=== PATIENT | male | born 1950 | race Asian ===

== ENCOUNTER 2017-10-30 01:59 | Outpatient (CLI) | payer MEDICARE, OTHER | END 2017-10-30 02:00 | disposition critical access hospital (66) | LOC: EMS 01:59 | PROVIDERS: ATTEND Surgery | DX: R10.10 Upper abdominal pain, unspecified (principal); R61 Generalized hyperhidrosis; R11.0 Nausea | CPT/HCPCS: A0425; A0429 ==

== ENCOUNTER 2017-10-30 02:51 | Emergency (ER) | payer MEDICARE, OTHER ==
--- NOTE | 2017-10-30 03:10 | ED Physician Documentation ---
PD HPI CHEST PAIN - Stated complaint Stated Complaint: CHEST PAIN - Chief complaint Chief Complaint: Cardiac - History obtained from History obtained from: Patient, EMS - History of Present Illness Timing - onset: Enter time (01:00), Today Timing - onset during: Sleep Timing - details: Abrupt onset Pain level max: 10 Pain level now: 5 Quality: Pain Location: Epigastric Radiation: Other (no radiation) Improved by: Nothing Worsened by: Other (no apparent inciting or exacerbating factors) Associated symptoms: No: Shortness of air, Diaphoresis, Nausea, Vomiting, General Weakness, Palpitations, Cough Similar symptoms before: Other (has had similar but milder episodes in the past that were self-limited and thus he did not seek medical attention until tonight' s severe episode) Recently seen: Not recently seen - Additional information Additional information: awoken from sleep 1 AM due to severe epigastric pain which has subsequently improved significantly en route to ED. Review of Systems Constitutional: denies: Fever, Chills, Sweats Cardiac: reports: Reviewed and negative Respiratory: reports: Reviewed and negative GI: reports: Abdominal Pain. denies: Nausea, Vomiting : denies: Dysuria, Frequency Musculoskeletal: denies: Neck pain, Back pain PD PAST MEDICAL HISTORY - Past Medical History Past Medical History: No - Past Surgical History Past Surgical History: Yes - Present Medications Home Medications: Ambulatory Orders Medication Instructions Recorded Confirmed Ondansetron Odt [Zofran] 4 mg TL Q6H PRN #14 tablet 10/30/17 oxyCODONE [Roxicodone] 5 - 10 mg PO Q6H PRN #20 tablet 10/30/17 - Allergies Allergies/Adverse Reactions: Allergies Allergy/AdvReac Type Severity Reaction Status Date / Time acetaminophen [From Percocet] Allergy Unknown Verified 10/30/17 02:59 oxycodone [From Percocet] Allergy Unknown Verified 10/30/17 02:59 Penicillins Allergy Unknown Verified 10/30/17 02:59 - Social History Does the pt smoke?: No Smoking Status: Never smoker Does the pt drink ETOH?: No Does the pt have substance abuse?: Yes Substance Use and Type: Marijuana - POLST Patient has POLST: No PD ED PE NORMAL - Vitals Vital signs reviewed: Yes - General General: Alert and oriented X 3, No acute distress, Well developed/nourished - HEENT HEENT: Moist mucous membranes - Cardiac Cardiac: RRR, No murmur, No gallop, No rub - Respiratory Respiratory: No respiratory distress, Clear bilaterally - Abdomen Abdomen: Normal bowel sounds, Soft, Non tender, Non distended, No organomegaly - Back Back: No CVA TTP - Derm Derm: Normal color, Warm and dry - Extremities Extremities: No edema Results - Vitals Vitals: Vital Signs - 24 hr 10/30/17 10/30/17 10/30/17 02:51 03:04 05:23 Temperature 36.5 C 36.3 C L Heart Rate 58 L 56 L 80 Respiratory 18 16 16 Rate Blood Pressure 143/96 H 148/83 H 137/82 H O2 Saturation 100 100 99 10/30/17 06:19 Temperature 36.8 C Heart Rate 61 Respiratory 18 Rate Blood Pressure 132/74 H O2 Saturation 97 Oxygen O2 Source Room air - EKG (time done) No standard instances Rate: Rate (enter#) (58) Rhythm: NSR [place]: Normal Intervals: Normal VT QRS: LVH Ischemia: Normal ST segments, Non specific changes (biphasic T waves V2-V6) Other comments: Other comments (PAC) - Labs Labs: Laboratory Tests 10/30/17 10/30/17 10/30/17 03:48 03:48 03:48 WBC 7.4 RBC 4.58 L Hgb 14.1 Hct 42.6 MCV 92.9 MCH 30.8 MCHC 33.2 RDW 13.4 Plt Count 271 MPV 7.1 L Neut # 6.0 Lymph # 0.8 L [place] # 0.4 Eos # 0.1 Baso # 0.0 Absolute Nucleated RBC 0.00 Nucleated RBC % 0.0 Sodium 138 Potassium 3.8 Chloride 101 Carbon Dioxide 23 Anion Gap 14.0 H BUN 15 Creatinine 0.7 Estimated GFR (MDRD) 113 Glucose 118 H Calcium 8.8 Total Bilirubin 1.0 AST 97 H ALT 57 Alkaline Phosphatase 65 Troponin I < 0.04 Total Protein 6.4 L Albumin 3.5 Globulin 2.9 Albumin/Globulin Ratio 1.2 Lipase 34 - Rads (name of study) chest xray Radiology: Prelim report reviewed, See rad report RUQ US Radiology: Prelim report reviewed, See rad report PD MEDICAL DECISION MAKING - ED course Complexity details: reviewed results, re-evaluated patient, considered differential, d/w patient, d/w family ED course: given 0.5mg IV dilaudid and zofran IV with good relief of symptoms, reported 1 ( of 10) pain on reevaluation after tests resulted. Suspect biliary colic, can be discharged home with outpatient f/u, encouraged to return if worse in any way Departure - Departure Disposition: 01 Home, Self Care Clinical Impression: Biliary colic Condition: Good Instructions: ED Gallstone W Biliary Colic Follow-Up: Mehran Coates MD [Provider Admit Priv/Credential] - Prescriptions: Ondansetron Odt [Zofran] 4 mg TL Q6H PRN #14 tablet PRN Reason: Nausea / Vomiting oxyCODONE [Roxicodone] 5 - 10 mg PO Q6H PRN #20 tablet PRN Reason: Pain Discharge Date/Time: 10/30/17 06:20
[2017-10-30] MEDS ORDERED: ONDANSETRON 4 MG/2 ML VIAL IVP STA (03:42)
[2017-10-30] MEDS ORDERED: HYDROmorphone 1 MG/ML SYRINGE IVP STA (03:42)
[2017-10-30 04:00] LABS: BASOPHILS % (AUTO) 0.5 %; EOSINOPHILS # (AUTO) 0.1 10^3/uL (0.0-0.7); EOSINOPHILS % (AUTO) 1.4 %; HGB - HEMOGLOBIN 14.1 g/dL (14.0-18.0); LYMPHOCYTES # (AUTO) 0.8 10^3/uL (1.5-3.5); LYMPHOCYTES % (AUTO) 11.2 %; MEAN CORPUSCULAR HEMOGLOBIN 30.8 pg (27.0-31.0); MEAN CORPUSCULAR HGB CONC 33.2 g/dL (32.0-36.0); MEAN CORPUSCULAR VOLUME 92.9 fL (80.0-94.0); MEAN PLATELET VOLUME 7.1 fL (7.4-11.4); MONOCYTES # (AUTO) 0.4 10^3/uL (0.0-1.0); NEUTROPHILS % (AUTO) 80.9 %; PLT - PLATELET COUNT 271 10^3/uL (130-450); RED BLOOD COUNT 4.58 10^6/uL (4.70-6.10); RED CELL DISTRIBUTION WIDTH 13.4 % (12.0-15.0); WHITE BLOOD COUNT 7.4 x10^3/uL (4.8-10.8)
[2017-10-30 04:10] LABS: ALBUMIN 3.5 g/dL (3.2-5.5); ALBUMIN/GLOBULIN RATIO 1.2 (1.0-2.2); CALCIUM 8.8 mg/dL (8.5-10.3); CREATININE 0.7 mg/dL (0.6-1.2); TOTAL PROTEIN 6.4 g/dL (6.7-8.2)
--- NOTE | 2017-10-30 04:12 | XRAY Report ---
EXAM: CHEST RADIOGRAPHY EXAM DATE: 10/30/2017 04:02 AM. CLINICAL HISTORY: Epigastric pain. COMPARISON: None. TECHNIQUE: 2 views. FINDINGS: Lungs/Pleura: Large lung volumes. No alveolar consolidation or pleural effusion seen. No pneumothorax . Mediastinum: Heart and mediastinal contours are unremarkable. Other: None. IMPRESSION: 1. No acute abnormality seen in the chest. [facility] Referring Provider Line: [phone] SITE ID: [id number]
--- NOTE | 2017-10-30 04:12 | XRAY Preliminary Report ---
Exam: XR CHEST 2 VIEW X-RAY IMPRESSION: 1. No acute abnormality seen in the chest. [facility] SITE ID: [id number]
--- NOTE | 2017-10-30 05:19 | Ultrasound Report ---
EXAM: ABDOMEN ULTRASOUND LIMITED, RUQ EXAM DATE: 10/30/2017 05:07 AM. CLINICAL HISTORY: Abdominal pain. COMPARISON: None. TECHNIQUE: Real-time scanning was performed with static images obtained. FINDINGS: Liver: Echogenic and heterogeneous. Liver cysts measuring up to 3.5 cm. 14.5 cm. Main portal vein tana w: Hepatopetal. Gallbladder: Multiple small mobile stones. Polyp measuring 5 mm. Wall thickening measuring up to 7 mm . No focal tenderness over the gallbladder. However, patient had been medicated. Biliary System: CBD measures 7 mm. Possible intrahepatic ductal dilatation. Other: Pancreas is not well seen. Visualized portions appear normal aside from possible ductal dilata tion measuring up to 3.6 mm. Right kidney measures 9.5 cm. No hydronephrosis seen. 3 mm echogenic foc us is seen which could be a nonobstructing stone or vascular calcification. IMPRESSION: 1. Small stones in the gallbladder with wall thickening measuring up to 7 mm. 2. No focal tenderness noted over the gallbladder. However, patient had been medicated. Cholecystitis not entirely excluded. 3. Borderline dilated common duct with possible intrahepatic ductal dilatation. No obvious common karly t stone identified. 4. Possible fatty liver. 5. Mildly dilated pancreatic duct of uncertain etiology. MRCP could be considered for further evaluat ion. [facility] Referring Provider Line: [phone] SITE ID: [id number]
[2017-10-30] MEDS ORDERED: KETOROLAC 60 MG/2 ML VIAL IVP STA (05:51)
[2017-10-30 06:20] VITALS: BP 132/74
== END 2017-10-30 06:20 | disposition home or self-care (01) ==
LOC: ED 02:51
DX: K80.50 Calculus of bile duct without cholangitis or cholecystitis without obstruction (principal); R94.31 Abnormal electrocardiogram [ECG] [EKG]
CPT/HCPCS: 36415; 71046; 76705; 80053; 83690; 84484; 85025; 93005; 96374; 96375; 99284; J1170

== ENCOUNTER 2017-10-31 16:20 | Inpatient (IN) | payer MEDICARE, OTHER ==
--- NOTE | 2017-10-31 16:45 | ED Physician Documentation ---
History of Present Illness - Stated complaint Stated Complaint: FEVER/DIZZY CHILLS - Chief complaint Chief Complaint: General - History obtained from History obtained from: Patient, Family ( and daughter) - History of Present Illness Timing: Other (This is a very healthy 67-year-old gentleman who was seen yesterday morning for biliary colic. Ultrasound at the time showed multiple stones and some gallbladder wall thickening and a 7 mm common bile duct. He today was having chills and some confusion which has resolved and the family thinks he looks yellow.) Review of Systems Ten Systems: 10 systems reviewed and negative Constitutional: reports: Fever, Chills, Myalgias, Fatigue Nose: denies: Rhinorrhea / runny nose, Congestion GI: denies: Abdominal Pain, Nausea, Vomiting, Diarrhea PD PAST MEDICAL HISTORY - Past Medical History Past Medical History: No - Past Surgical History Past Surgical History: Yes - Present Medications Home Medications: Ambulatory Orders Medication Instructions Recorded Confirmed Ondansetron Odt [Zofran] 4 mg TL Q6H PRN #14 tablet 10/30/17 oxyCODONE [Roxicodone] 5 - 10 mg PO Q6H PRN #20 tablet 10/30/17 - Allergies Allergies/Adverse Reactions: Allergies Allergy/AdvReac Type Severity Reaction Status Date / Time acetaminophen [From Percocet] Allergy Unknown Verified 10/30/17 02:59 aspirin [From Percodan] Allergy Unknown Verified 10/31/17 16:29 oxycodone [From Percocet] Allergy Unknown Verified 10/30/17 02:59 Penicillins Allergy Unknown Verified 10/30/17 02:59 - Social History Does the pt smoke?: No Smoking Status: Never smoker Does the pt drink ETOH?: No Does the pt have substance abuse?: Yes - Family History Family history: reports: Non contributory - POLST Patient has POLST: No PD ED PE NORMAL - Vitals Vital signs reviewed: Yes - General General: Alert and oriented X 3, No acute distress - HEENT HEENT: PERRL, EOMI - Neck Neck: Supple, no meningeal sign, No bony TTP - Cardiac Cardiac: RRR, No murmur - Respiratory Respiratory: No respiratory distress, Clear bilaterally - Abdomen Abdomen: Other (Very mild right upper quadrant tenderness with slight guarding, no other surgical signs.) - Back Back: No CVA TTP, No spinal TTP - Derm Derm: Normal color, Warm and dry - Extremities Extremities: No edema, No calf tenderness / cord - Neuro Neuro: Alert and oriented X 3, Normal speech - Psych Psych: Normal mood, Normal affect Results - Vitals Vitals: Vital Signs - 24 hr 10/31/17 16:24 Temperature 37.3 C Heart Rate 93 Respiratory 18 Rate Blood Pressure 149/81 H O2 Saturation 97 Oxygen O2 Source Room air - Labs Labs: Laboratory Tests 10/31/17 10/31/17 10/31/17 16:50 16:52 16:52 WBC RBC Hgb Hct MCV MCH MCHC RDW Plt Count MPV Neut # Lymph # Warrick # Eos # Baso # Absolute Nucleated RBC Nucleated RBC % PT 11.8 INR 1.0 Sodium 135 Potassium 3.8 Chloride 101 Carbon Dioxide 23 Anion Gap 11.0 BUN 12 Creatinine 0.8 Estimated GFR (MDRD) 97 Glucose 115 H Lactic Acid Calcium 8.8 Total Bilirubin 1.1 H AST 51 H ALT 88 H Alkaline Phosphatase 83 Total Protein 6.6 L Albumin 3.6 Globulin 3.0 Albumin/Globulin Ratio 1.2 Lipase 19 L Influenza A (Rapid) Negative Influenza B (Rapid) Negative Influenza Types A,B Ag - 10/31/17 10/31/17 16:56 16:56 WBC 7.4 RBC 4.65 L Hgb 14.3 Hct 42.8 MCV 92.0 MCH 30.7 MCHC 33.4 RDW 13.1 Plt Count 235 MPV 7.0 L Neut # 6.1 Lymph # 0.6 L [place] # 0.7 Eos # 0.0 Baso # 0.1 Absolute Nucleated RBC 0.00 Nucleated RBC % 0.0 PT INR Sodium Potassium Chloride Carbon Dioxide Anion Gap BUN Creatinine Estimated GFR (MDRD) Glucose Lactic Acid 0.9 Calcium Total Bilirubin AST ALT Alkaline Phosphatase Total Protein Albumin Globulin Albumin/Globulin Ratio Lipase Influenza A (Rapid) Influenza B (Rapid) Influenza Types A,B Ag PD MEDICAL DECISION MAKING - ED course ED course: 67-year-old gentleman presents today with symptoms concerning for obstructive jaundice, however objective workup really is not too bad with normal white count and only minimal elevation in liver enzymes. Given gallbladder wall thickening yesterday though case was discussed by phone with Dr. Coates, the on- call surgeon who will see the patient in the emergency department. After evaluation he is placing him in observation for MRCP. Departure - Departure Disposition: ED Place in Observation Clinical Impression: Biliary colic Condition: Good
[2017-10-31 17:02] LABS: BASOPHILS # (AUTO) 0.1 10^3/uL (0.0-0.1); BASOPHILS % (AUTO) 0.7 %; EOSINOPHILS % (AUTO) 0.1 %; HGB - HEMOGLOBIN 14.3 g/dL (14.0-18.0); LYMPHOCYTES # (AUTO) 0.6 10^3/uL (1.5-3.5); LYMPHOCYTES % (AUTO) 7.9 %; MEAN CORPUSCULAR HEMOGLOBIN 30.7 pg (27.0-31.0); MEAN CORPUSCULAR HGB CONC 33.4 g/dL (32.0-36.0); MONOCYTES # (AUTO) 0.7 10^3/uL (0.0-1.0); MONOCYTES % (AUTO) 9.2 %; NEUTROPHILS # (AUTO) 6.1 10^3/uL (1.5-6.6); NEUTROPHILS % (AUTO) 82.1 %; PLT - PLATELET COUNT 235 10^3/uL (130-450); RED BLOOD COUNT 4.65 10^6/uL (4.70-6.10); RED CELL DISTRIBUTION WIDTH 13.1 % (12.0-15.0); WHITE BLOOD COUNT 7.4 x10^3/uL (4.8-10.8)
[2017-10-31 17:15] LABS: ALBUMIN 3.6 g/dL (3.2-5.5); ALBUMIN/GLOBULIN RATIO 1.2 (1.0-2.2); BILIRUBIN,TOTAL 1.1 mg/dL (0.2-1.0); CALCIUM 8.8 mg/dL (8.5-10.3); CREATININE 0.8 mg/dL (0.6-1.2); TOTAL PROTEIN 6.6 g/dL (6.7-8.2)
[2017-10-31 17:17] LABS: PT - PROTHROMBIN TIME 11.8 secs (9.9-12.6)
[2017-10-31] MEDS ORDERED: SODIUM CHLORIDE FLUSH 0.9% 10 ML SYRINGE IVP PRN (18:13)
[2017-10-31] MEDS ORDERED: ERTAPENEM 1 GM in SODIUM CHLORIDE 0.9% MINIBAG 100 ML IV SCH (18:19)
[2017-10-31] MEDS ORDERED: ONDANSETRON 4 MG/2 ML VIAL IVP PRN (18:19)
[2017-10-31] MEDS ORDERED: HYDROmorphone 1 MG/ML SYRINGE IVP PRN (18:20)
[2017-10-31] MEDS: NS W/20 MEQ KCL 1,000 ML IV SCH (19:53)
[2017-10-31] MEDS: SODIUM CHLORIDE FLUSH 0.9% 10 ML SYRINGE IVP SCH (19:53)
[2017-10-31] MEDS: FAMOTIDINE 20 MG TABLET PO SCH (20:42)
[2017-11-01] MEDS: ACETAMINOPHEN 325 MG TABLET PO PRN ×2 (04:00→20:37)
[2017-11-01] MEDS: NS W/20 MEQ KCL 1,000 ML IV SCH ×2 (06:18→17:55)
[2017-11-01] MEDS: SODIUM CHLORIDE FLUSH 0.9% 10 ML SYRINGE IVP SCH ×3 (06:19→20:38)
[2017-11-01 06:48] LABS: BASOPHILS # (AUTO) 0.1 10^3/uL (0.0-0.1); BASOPHILS % (AUTO) 0.8 %; EOSINOPHILS % (AUTO) 0.2 %; HGB - HEMOGLOBIN 14.7 g/dL (14.0-18.0); LYMPHOCYTES # (AUTO) 0.7 10^3/uL (1.5-3.5); LYMPHOCYTES % (AUTO) 8.4 %; MEAN CORPUSCULAR HGB CONC 33.3 g/dL (32.0-36.0); MEAN CORPUSCULAR VOLUME 93.1 fL (80.0-94.0); MEAN PLATELET VOLUME 7.3 fL (7.4-11.4); MONOCYTES # (AUTO) 0.9 10^3/uL (0.0-1.0); MONOCYTES % (AUTO) 11.2 %; NEUTROPHILS # (AUTO) 6.7 10^3/uL (1.5-6.6); NEUTROPHILS % (AUTO) 79.4 %; PLT - PLATELET COUNT 230 10^3/uL (130-450); RED BLOOD COUNT 4.75 10^6/uL (4.70-6.10); RED CELL DISTRIBUTION WIDTH 13.5 % (12.0-15.0); WHITE BLOOD COUNT 8.4 x10^3/uL (4.8-10.8)
[2017-11-01 06:58] LABS: ALBUMIN 3.4 g/dL (3.2-5.5); ALBUMIN/GLOBULIN RATIO 1.2 (1.0-2.2); BILIRUBIN,DIRECT 0.2 mg/dL (0.1-0.5); CALCIUM 8.5 mg/dL (8.5-10.3); CREATININE 1.1 mg/dL (0.6-1.2); TOTAL PROTEIN 6.2 g/dL (6.7-8.2)
[2017-11-01] MEDS: FAMOTIDINE 20 MG TABLET PO SCH ×2 (07:50→20:38)
[2017-11-01] MEDS ORDERED: ERTAPENEM 1 GM in SODIUM CHLORIDE 0.9% MINIBAG 100 ML IV SCH (20:00)
[2017-11-02 04:43] LABS: BASOPHILS # (AUTO) 0.1 10^3/uL (0.0-0.1); BASOPHILS % (AUTO) 0.7 %; EOSINOPHILS # (AUTO) 0.1 10^3/uL (0.0-0.7); EOSINOPHILS % (AUTO) 1.8 %; HGB - HEMOGLOBIN 14.6 g/dL (14.0-18.0); LYMPHOCYTES % (AUTO) 12.8 %; MEAN CORPUSCULAR HGB CONC 33.9 g/dL (32.0-36.0); MEAN CORPUSCULAR VOLUME 91.5 fL (80.0-94.0); MEAN PLATELET VOLUME 7.5 fL (7.4-11.4); MONOCYTES # (AUTO) 1.2 10^3/uL (0.0-1.0); MONOCYTES % (AUTO) 14.8 %; NEUTROPHILS # (AUTO) 5.7 10^3/uL (1.5-6.6); NEUTROPHILS % (AUTO) 69.9 %; PLT - PLATELET COUNT 196 10^3/uL (130-450); RED CELL DISTRIBUTION WIDTH 13.6 % (12.0-15.0); WHITE BLOOD COUNT 8.1 x10^3/uL (4.8-10.8)
[2017-11-02 04:56] LABS: ALBUMIN 3.2 g/dL (3.2-5.5); BILIRUBIN,DIRECT 0.2 mg/dL (0.1-0.5); BILIRUBIN,TOTAL 1.1 mg/dL (0.2-1.0); TOTAL PROTEIN 6.3 g/dL (6.7-8.2)
[2017-11-02] MEDS: SODIUM CHLORIDE FLUSH 0.9% 10 ML SYRINGE IVP SCH ×2 (06:59→14:49)
[2017-11-02] MEDS: FAMOTIDINE 20 MG TABLET PO SCH (08:45)
[2017-11-02] MEDS: ACETAMINOPHEN 325 MG TABLET PO PRN (12:11)
--- NOTE | 2017-11-02 12:32 | HISTORY & PHYSICAL EXAMINATION ---
DATE OF SERVICE: 10/31/2017 Physician: Mehran Coates MD I certify the I believe at this time patients stay with be less then 96 hours. REASON FOR ADMISSION: Abdominal pain and fever. HISTORY OF PRESENT ILLNESS: The patient is a 67-year-old male who presented with right upper quadrant abdominal pain starting within the last 24 hours. This is the first time he has had this pain. He went to the emergency room right afterwards, and an ultrasound of the abdomen was performed. This showed multiple gallstones being present with a mildly thickened wall at 7 mm. He had minimal elevation of liver function tests along with a white blood cell count that was normal. Because he had improved, he was then discharged home to follow up with Surgery. After coming home from the emergency room, he had a period of chills and feeling very weak. This was in addition to the epigastric pain. Because of this he then came back to the emergency room to be evaluated. PAST SURGICAL HISTORY: Surgery for pheochromocytoma. PAST MEDICAL HISTORY: History of pheochromocytoma. MEDICATIONS 1. Zofran. 2. Oxycodone. ALLERGIES 1. TYLENOL. 2. ASPIRIN. 3. PENICILLIN. 4. OXYCODONE. SOCIAL HISTORY: Patient denies any smoking, alcohol or drug use. Patient is . FAMILY HISTORY: Noncontributory. REVIEW OF SYSTEMS CONSTITUTIONAL: Not feeling well, weakness and fever. GASTROINTESTINAL: Abdominal pain. A 12-point review of systems was obtained, with pertinent positives discussed and all others being negative. PHYSICAL EXAMINATION VITAL SIGNS: Temperature 37.3, heart rate 93, respiration 18, blood pressure 149/81. GENERAL: The patient is sitting in bed, and he is not in any distress at the current time. HEENT: Eyes non-icteric. NECK: No lymphadenopathy. HEART: Regular rate and rhythm. LUNGS: Clear. ABDOMEN: Soft, nontender. BACK: Nontender. EXTREMITIES: No edema or cyanosis. NEUROLOGIC: Patient appears to be neurologically intact without any deficits. PSYCHOLOGICAL: The patient is coherent, cooperative, appears to answer questions fully. DIAGNOSTIC DATA: Total bilirubin 1.1, AST 51, ALT of 88, alkaline phosphatase of 83. White blood cell count is 7.4, hemoglobin 14.3. ASSESSMENT: Abdominal pain along with mildly elevated liver function tests with fever and chills. It is unknown what this is due to. He does have gallstones being present, along with mildly thickened gallbladder wall and a common bile duct of 7 mm. I do not think he has acute cholecystitis at the current time. However, he may have cholangitis with the most likely source from gallstones. I have recommended the patient be admitted to the hospital and started on IV antibiotics. We will obtain an MRI to rule out cholangitis. PLAN 1. Patient will be placed in observation. 2. NPO. 3. IV fluids. 4. IV antibiotics. 5. MRCP. TD: 11/01/2017 20:35 [place]
[2017-11-02] MEDS: NS W/20 MEQ KCL 1,000 ML IV SCH (14:49)
[2017-11-02 15:44] VITALS: BP 173/95
--- NOTE | 2017-11-02 18:56 | Discharge Plan ---
Discharge Plan Disposition: 01 Home, Self Care Condition: Stable Diet: Regular Activity Restrictions: No Restrictions Shower Restrictions: No Driving Restrictions: No Weight Bearing: Full Weight No Smoking: If you smoke, Please STOP! Call for help. Follow-up with: Mehran Coates MD [Provider Admit Priv/Credential] - 1 Week
--- NOTE | 2017-11-02 19:07 | MRI Preliminary Report ---
Exam: MRI MRCP W/O Impression: 1. Cholelithiasis. There is gallbladder wall thickening which is nonspecific and may be due to chroni c or acute cholecystitis versus systemic causes. 2. No significant biliary or pancreatic duct dilatation. 3. No choledocholithiasis. [facility] SITE ID: [id number]
--- NOTE | 2017-11-02 19:15 | MRI Report ---
EXAM: MR ABDOMEN WITHOUT CONTRAST (MR CHOLANGIOPANCREATOGRAPHY) EXAM DATE: 11/02/2017 06:47 PM. CLINICAL HISTORY: Elevated LFTs. COMPARISON: 10/30/2017 ultrasound. TECHNIQUE: Multiplanar breath-hold T1 and T2 sequences obtained through the abdomen on an MR scanner. Dedicated 2D and 3D MRCP sequences obtained through the biliary and pancreatic ducts. No intravenous contrast given. FINDINGS: There are several hepatic cysts measuring up to 3.3 cm. The liver is otherwise unremarkable. The panc reas, spleen, adrenal glands, and kidneys are unremarkable. No dilated bowel loops, fluid collections or lymphadenopathy. Numerous small stones noted within the gallbladder. There is gallbladder wall thickening. No perichol ecystic inflammatory changes or fluid collections. The common bile duct measures 7 mm in diameter. No evidence of choledocholithiasis. No biliary strictures. The pancreatic duct measures 2-[address] No pancreatic duct stones or strictures. IMPRESSION: 1. Cholelithiasis. There is gallbladder wall thickening, which is nonspecific and may be due to chron ic or acute cholecystitis versus systemic causes. 2. No significant biliary or pancreatic duct dilatation. 3. No choledocholithiasis. [facility] Referring Provider Line: [phone] SITE ID: [id number]
--- NOTE | 2017-11-09 00:08 | PROVIDER PROGRESS NOTE ---
Subjective - General Admit Date: 11/01/17 - Review of Systems General: positive: Other (no fever) Gastrointestinal: positive: Other (No c/o abdominal pain) Objective - Lab Results Lab Results: 11/02/17 04:20 11/01/17 06:30 - Physical Exam General Appearance: positive: No acute distress Respiratory: positive: No respiratory distress, Breath sounds nml Cardiovascular: positive: Regular rate & rhythm Abdomen: positive: Non-tender Impression/Plan - Problem List Problem List: Elevated lfts, fever, ruq abdominal pain with cholelithiasis. Currently without symptoms. Lfts normalized on iv antibiotics. MRCP no cbd stones. Thickened gallbladder wall most likely chronic cholecystitis. Clinically I had felt that he possibly had passed a common bile duct stone with temporary cholangitis although he had a normal wbc. I would recommend that he consider undergoing a cholecystectomy at some point as an outpatient as I think his admitting symptoms were secondary to biliary tract disease. d/c home.
--- NOTE | 2017-11-09 00:14 | PROVIDER PROGRESS NOTE ---
Subjective - General Admit Date: 11/01/17 - Review of Systems General: positive: No symptoms, Other (no fever) Gastrointestinal: positive: Other (No c/o abdominal pain) Objective - Lab Results Lab Results: 11/02/17 04:20 11/01/17 06:30 Impression/Plan - Problem List Problem List: RUq abdominal pain has resolved. LFts almost normal. MRCP to r/o common bile duct stone. Continue IV antibiotics until then.
--- NOTE | 2017-11-09 08:28 | DISCHARGE SUMMARY ---
DATE OF SERVICE: Physician: Mehran Coates MD DATE OF ADMISSION: 10/31/2017 DATE OF DISCHARGE: 11/02/2017 DATE OF ADMISSION: 10/31/2017 DATE OF DISCHARGE: 11/02/2017 REASON FOR ADMISSION: Abdominal pain and fever. HISTORY OF PRESENT ILLNESS: The patient is a 67-year-old male who presents with right upper quadrant abdominal pain starting last 24 hours. This is the first time he has had this pain. He is also having chills and fever, although he did not measure his temperature. Because of this, came to the emergency room to be evaluated. He had an abdominal ultrasound, which revealed gallbladder with multiple gallstones being present with gallbladder wall mildly thickened and a common bile duct at 7 mm. He had mildly elevated liver function tests with a normal white count. PRINCIPAL DIAGNOSIS: Right upper quadrant abdominal pain and fever, possibly secondary to biliary tract disease such as passing a common bile duct stone. OTHER MEDICAL PROBLEMS: 1. Chronic cholecystitis with cholelithiasis. 2. Elevated liver function tests. 3. History of pheochromocytoma. 4. Right upper quadrant abdominal pain. PAST PROCEDURES: None. HOSPITAL COURSE: The patient was admitted to the hospital and started on IV antibiotics for possible cholangitis. He was watched overnight and improved with his liver function test. Because of his symptoms and possible history of cholangitis, an MRI was obtained, but was not able to be performed until 11/02/2017. This showed no filling defects in the common bile duct at this time, with a thickened gallbladder wall with cholelithiasis. At this time, he has remained afebrile with his liver function test almost normal, except for a total bilirubin of 1.1. He was not having any abdominal pain at this time, was tolerating a diet. He was afebrile. He was then discharged home. DISCHARGE PROGRAM: 1. Patient will be discharged home. 2. Follow up in Surgical Clinic in 1 week to discuss possible laparoscopic cholecystectomy with intraoperative cholangiogram. 3. He is to return to the emergency room if he has any further pain in the meantime. 4. Low fat diet. TD: 11/09/2017 09:28
== END 2017-11-02 19:37 | disposition home or self-care (01) | DRG 446 ==
LOC: ED 16:20 → OBS 18:11 → OBSVTOIN 11-01 14:40 → MS2 11-01 15:59 → OBS 11-01 16:07 → MS3 11-01 16:10
PROVIDERS: ADMIT Surgery; ATTEND Surgery
DX: K80.64 Calculus of gallbladder and bile duct with chronic cholecystitis without obstruction (principal); R50.9 Fever, unspecified; R79.89 Other specified abnormal findings of blood chemistry; Z79.891 Long term (current) use of opiate analgesic; Z79.899 Other long term (current) drug therapy
CPT/HCPCS: 36415; 74181; 80053; 80076; 82150; 82248; 83605; 83690; 85025; 85610; 87275; 87276; 96361; 96365; 96366; 99283; 99284

== ENCOUNTER 2017-12-04 10:33 | Day surgery (SDC) | payer MEDICARE, OTHER ==
[~2017-12-04 10:33] MED LIST: levoFLOXacin 500 MG/100 ML 500 MG/100 ML BAG IV ONE
[2017-12-04] MEDS ORDERED: LACTATED RINGERS 1,000 ML IV ONE ×2 (10:48→12:24)
[2017-12-04 11:29] LABS: BILIRUBIN,DIRECT 0.2 mg/dL (0.1-0.5); BILIRUBIN,TOTAL 1.6 mg/dL (0.2-1.0); TOTAL PROTEIN 6.5 g/dL (6.7-8.2)
[2017-12-04] MEDS ORDERED: BUPIVACAINE 0.25% PF 30 ML VIAL SUBQ ONE ×3 (12:03)
[2017-12-04] MEDS ORDERED: LIDOCAINE 1%-EPI 1:100000 20 ML MDV SUBQ ONE (12:03)
[2017-12-04] MEDS ORDERED: ACETAMINOPHEN 1,000 MG/100 ML 100 ML IV ONE (12:05)
[2017-12-04] MEDS ORDERED: ROCURONIUM 50 MG/5 ML VIAL IVP ONE (12:05)
[2017-12-04] MEDS ORDERED: ONDANSETRON 4 MG/2 ML VIAL IVP ONE (12:05)
[2017-12-04] MEDS ORDERED: PROPOFOL 200 MG/20 ML VIAL IVP ONE (12:05)
[2017-12-04] MEDS ORDERED: MIDAZOLAM 2 MG/2 ML VIAL IVP ONE (12:05)
[2017-12-04] MEDS ORDERED: GLYCOPYRROLATE 1 MG/5 ML VIAL IVP ONE (12:05)
[2017-12-04] MEDS ORDERED: LIDOCAINE-MPF 2% 5 ML VIAL IM ONE (12:05)
[2017-12-04] MEDS ORDERED: NEOSTIGMINE 1 MG/1 ML 10 ML MDV IVP ONE (12:05)
[2017-12-04] MEDS ORDERED: DEXAMETHASONE 4 MG/ML VIAL IVP ONE (12:05)
[2017-12-04] MEDS ORDERED: fentaNYL 100 MCG/2 ML VIAL IVP ONE (12:05)
[2017-12-04] MEDS ORDERED: IOTHALAMATE MEGLUMINE 50 ML VIAL IVP ONE (12:19)
[2017-12-04] MEDS ORDERED: HYDROcod/ACETAM 5/325 MG TABLET ONE (13:57)
--- NOTE | 2017-12-04 14:00 | XRAY Report ---
INTRAOPERATIVE CHOLANGIOGRAM: 12/04/2017 CLINICAL INDICATION: Cholecystectomy. FINDINGS: Two images of an intraoperative cholangiogram demonstrate opacification of the common bile duct and intrahepatic ducts. No filling defect is seen to suggest choledocholithiasis. Contrast spills into the duodenum. Incidental note is made of a small amount of contrast extravasation in the gallbladder fossa. IMPRESSION: NO EVIDENCE OF CHOLEDOCHOLITHIASIS. FOURTEEN SECONDS OF FLUOROSCOPY TIME WAS PROVIDED TO DR KWOK; TWO SPOT IMAGES OBTAINED. TD: 12/04/2017 13:59
--- NOTE | 2017-12-04 14:14 | OPERATIVE REPORT ---
DATE OF SERVICE: 12/04/2017 Physician: Mehran Coates MD DATE OF SURGERY: 12/04/2017. PREOPERATIVE DIAGNOSIS: Chronic cholecystitis with cholelithiasis. POSTOPERATIVE DIAGNOSIS: Chronic with cholelithiasis. OPERATION PERFORMED: Laparoscopic cholecystectomy with intraoperative cholangiogram. OPERATING SURGEON: Dr. Mehran Coates. ANESTHESIA: General. INDICATIONS FOR PROCEDURE: The patient is a 67-year-old male who was admitted to the hospital with right upper quadrant abdominal pain, fever and elevated liver function tests 1 month ago. He was started on IV antibiotics along with IV fluids. He had an ultrasound of the abdomen which revealed a gallbladder with gallstones and a mildly dilated common bile duct. His symptoms improved with an MRCP showing no intrabiliary gallstones being present. This could be related to either passing the gallstone through the common bile duct or acute cholecystitis that then resolved. In order to not have any further problems in the future, the patient has elected to undergo a laparoscopic cholecystectomy. FINDINGS AT SURGERY: The patient had a chronically inflamed, thickened gallbladder wall containing small gallstones. He had a normal intraoperative cholangiogram. PROCEDURE: After informed consent was obtained, the patient was taken to the operating room, placed in the supine position. General endotracheal anesthesia was administered. The patient's abdomen was then prepped and draped in the usual sterile fashion. Prior to making any abdominal incisions, the skin was injected with local anesthesia. An infraumbilical incision was made in the skin using a scalpel. A 5 mm Optiview trocar were then inserted through the incision, through the fascia and into the abdominal cavity under direct vision. The abdomen was then insufflated. Three 5 mm ports were then placed in the right upper quadrant with the umbilical port switched to a 12 mm port under direct vision. Gallbladder fundus was then grasped and lifted anteriorly and superiorly exposing the triangle of Calot. Peritoneum was then incised with cystic duct and cystic artery identified. Critical view was obtained. Clips were then placed proximally and distally along the cystic artery with it then being divided. Kapoor clamp was then placed and a cholangiogram was performed. This showed normal biliary anatomy without any filling defects in the biliary tree and flow of contrast into the duodenum. The Kapoor clamp was then removed and clips were then placed proximally and distally along the cystic duct with them being divided. The gallbladder was then dissected off the gallbladder bed using electrocautery, placed in Endobag and removed through the umbilical port. Right upper quadrant was thoroughly irrigated and no bleeding was noted. Ports were then removed and no bleeding was noted at the port sites with the abdomen then being desufflated. The umbilical fascial defect was then closed using #1 Vicryl sutures. Incisions were closed using 4-0 Monocryl subcuticular stitch. Dermabond was then applied. The patient was then awakened, extubated and taken from the operating room in stable condition. ESTIMATED BLOOD LOSS: Less than 5 mL COMPLICATIONS: None. CONDITION OF THE PROCEDURE AT THE END OF THE PROCEDURE: Stable. SPECIMENS: Gallbladder and gallstones. DRAINS, PACKS: None. CLASSIFICATION OF WOUND: Clean/contaminated. TD: 12/04/2017 14:13
[2017-12-04 14:17] VITALS: BP 148/89
== END 2017-12-04 10:34 | disposition home or self-care (01) ==
LOC: SDS 10:33
PROVIDERS: ATTEND Surgery
PROC: 0FT44ZZ Resection of Gallbladder, Percutaneous Endoscopic Approach (ICD-10-PCS; principal; 2017-12-04 11:30)
DX: K80.10 Calculus of gallbladder with chronic cholecystitis without obstruction (principal); I10 Essential (primary) hypertension; Z87.891 Personal history of nicotine dependence
CPT/HCPCS: 47563; 74300; 80076; A9270; J0131; J7120; Q9961

== ENCOUNTER 2020-09-07 16:55 | Outpatient (CLI) | payer MEDICARE, OTHER | END 2020-09-07 16:56 | disposition home or self-care (01) | LOC: COV 16:55 | PROVIDERS: ATTEND Family Medicine | DX: Z20.828 Contact with and (suspected) exposure to other viral communicable diseases (principal) ==